=== PATIENT | female | born 1935 | race Caucasian/White ===

== ENCOUNTER 2018-03-14 13:55 | Inpatient (IN) | payer MEDICARE, BC ==
[2018-03-14] MEDS ORDERED: Sodium Chloride 0.9% 1,000 ML IV SCH ×2 (14:30)
[2018-03-14 14:47] VITALS: BMI 19.7
[2018-03-14 15:35] LABS: #Basophils 0.1 thou/uL (0.0-0.2); #Eosinphils 0.1 thou/uL (0.0-0.7); #Neutrophils 6.4 thou/uL (1.40-6.50); %Basophils 0.6 % (0.0-1.0); %Eosinophils 0.6 % (0.0-10.0); %Lymphocytes 21.5 % (21.0-51.0); %Monocytes 10.2 % (0.0-10.0); %Neutrophils 67.1 % (42.0-75.0); Hemoglobin 8.5 g/dL (12.0-16.0); Mean Corpuscular HGB CONC 34.5 g/dL (32.0-36.0); Mean Corpuscular Hemoglobin 34.3 pg (27.0-31.0); Mean Corpuscular Volume 99.3 fL (78.0-98.0); Mean Platelet Volume 7.6 fL (7.4-10.4); Platelet Count 155 thou/uL (130-400); RBC Distribution Width 10.9 % (11.5-14.5); Red Blood Cell (RBC) Count 2.49 mill/uL (4.20-5.40); White Blood Cell (WBC) Count 9.5 thou/uL (4.8-10.8)
[2018-03-14 15:56] LABS: ALT (SGPT) 11 U/L (8-55); AST (SGOT) 14 U/L (5-34); Albumin 3.8 g/dL (3.4-4.8); Alkaline Phosphatase 48 U/L (40-150); Anion Gap 12 mmol/L (10-20); BUN (Urea Nitrogen) 55 mg/dL (9.8-20.1); Bilirubin, Total 0.3 mg/dL (0.2-1.2); Calc. Creatinine Clearance 37 mL/min (70-130); Calcium 8.9 mg/dL (7.8-10.44); Carbon Dioxide 23 mmol/L (23-31); Chloride 105 mmol/L (98-107); Estimated GFR-MDRD 62; Globulin 2.2 g/dL (2.4-3.5); Glucose 102 mg/dL (83-110); Potassium 4.6 mmol/L (3.5-5.1); Sodium 135 mmol/L (136-145)
[2018-03-14] MEDS ORDERED: Ondansetron HCl/PF 4 MG/2 ML Vial IVP PRN (16:28)
[2018-03-14] MEDS ORDERED: Acetaminophen 325 MG TAB PO PRN (16:28)
[2018-03-14 17:18] LABS: Hemoglobin 7.9 g/dL (12.0-16.0)
[2018-03-14 18:13] LABS: Folate (Folic Acid) 11.4 ng/mL (7.0-31.4)
[2018-03-14] MEDS: Sodium Chloride 0.9% 1,000 ML IV SCH (22:26)
[2018-03-14] MEDS: Amlodipine 5 MG TAB PO SCH ×2 (22:26→22:28)
[2018-03-14] MEDS: Simvastatin 20 MG TAB PO SCH (22:26)
[2018-03-14] MEDS: Acetaminophen 500 MG TAB PO SCH (22:26)
[2018-03-14] MEDS: Pantoprazole 40 MG VIAL IVP SCH (22:27)
--- NOTE | 2018-03-14 22:30 | HP ---
REASON FOR ADMISSION: Likely post-polypectomy bleeding. HISTORY OF PRESENT ILLNESS: The patient gives history of having had colonoscopy with biopsies done o saturday. She also had upper endoscopy with biopsies as well during the same setting. On , patient had one episode of black tarry stool in the morning. She called the [facility] and was asked to take Imodium and to call back if she had any further bleeding. She had a second episode yesterday night. She took her second dose of Imodium and did not feel good aft er that. This morning, she felt dizzy and very lethargic. She called the clinic again this morning and was asked to come to the hospital. She has not had any further bleeding after the second episode yesterday evening. She has no complaints of chest pain, shortness of breath or palpitation. No com plaints of abdominal pain. She has been passing flatus from morning. PAST MEDICAL/SURGICAL HISTORY: History of hypertension, osteoarthritis. Has had 4 surgeries for bow el obstruction. The last one was more than 8 years back, tonsillectomy. Surgery for suspected tubal , which was negative. Last stress test was 8 years back. She moved to [facility] in the last 5 years or so. CURRENT MEDICATIONS: The patient is on Zocor 20 mg daily, lisinopril 40 mg daily, Norvasc 5 mg daily , Extra Strength Tylenol 2 capsules once daily, Super B complex 1 capsule daily, fish oil 1200 mg p.o . daily, calcium with vitamin D3 daily, magnesium oxide 500 mg daily, and has been off aspirin 81 mg for a week now. Biotin 5000 mg once daily. ALLERGIES: PENICILLIN. PERSONAL HISTORY: Does not abuse alcohol or drugs. No history of smoking. FAMILY HISTORY: Mother at the age of 89 years. She has had coronary artery disease and osteoar thritis. Father at the age of 90 years. He has had coronary artery disease as well. CODE STATUS: FULL. Power of air transport professionals, Ms. Gallego her daughter. She lives in [place], [place]. The n umber to reach her is [phone]. REVIEW OF SYSTEMS: The following complete review of systems was negative, unless otherwise mentioned in the HPI or below: Constitutional: Weight loss or gain, ability to conduct usual activities. Skin: Rash, itching. Eyes: Double vision, pain. ENT/Mouth: Nose bleeding, neck stiffness, pain, tenderness. Cardiovascular: Palpitations, dyspnea on exertion, orthopnea. Respiratory: Shortness of breath, wheezing, cough, hemoptysis, fever or night sweats. Gastrointestinal: Poor appetite, abdominal pain, heartburn, nausea, vomiting, constipation, or diarr hea. Genitourinary: Urgency, frequency, dysuria, nocturia. Musculoskeletal: Pain, swelling. Neurologic/Psychiatric: Anxiety, depression. Allergy/Immunologic: Skin rash, bleeding tendency. PHYSICAL EXAMINATION: GENERAL: The patient is an 82-year-old female, who is currently not in any acute distress. VITAL SIGNS: Blood pressure 122/58, pulse 80 per minute, respiratory rate 18 per minute, temperature 97.4 degrees Fahrenheit, saturating 98% on room air. NECK: Supple, no elevated JVD. HEENT: Extraocular muscles intact. Pupils reacting to light. Oral cavity mucous membranes are dry. No exudates or congestion. CARDIOVASCULAR: S1 and S2 heard. Regular rhythm. RESPIRATORY: Air entry 1+ bilaterally. No rales or rhonchi. ABDOMEN: Soft, bowel sounds heard. No tenderness, rigidity, or guarding. EXTREMITIES: No peripheral edema or calf tenderness. VASCULAR SYSTEM: Peripheral pulses 1+ bilateral, no ischemic ulcerations or gangrene. CENTRAL NERVOUS SYSTEM: No gross focal deficits noted. Patient is alert, awake, oriented well. PSYCHIATRIC: The patient's mood is euthymic. No hallucinations or delusions. LABORATORY AND X-RAY FINDINGS: White count of 9.5, H&H 8.5 and 24, platelet count 155, MCV is 99 wit h 67% neutrophils. Sodium 135, serum bicarbonate 23, BUN 55, creatinine 0.8, glucose 102. Liver enz ymes are within normal limits. Albumin is 3.8. Histopathology of colonoscopy and EGD done on 2017 showed focal active duodenitis, reactive gastropathy. No H. pylori and collagenous colitis. CLINICAL IMPRESSION AND PLAN: The patient will be under observation on medical floor for likely post -polypectomy bleeding. We will obtain H&H q.8 hourly x3. Her current hemoglobin is 8.5 grams, and I am not aware of her baseline. If her hemoglobin drops less than 7 grams, she will be transfused. S he is currently receiving a bolus of normal saline. Dr. London as ordered on normal saline at 125 mL per hour thereafter. We will continue her Norvasc and Zocor. The patient will be on Protonix 40 mg IV q.12 hours. All other home medications will be held for now. We will consult Dr. Edison London, her core cutter while she is here. Patient has a slightly higher MCV and we will obtain a B12 and folic acid levels as well. A baseline EKG in view of her dizziness this morning will be obtaine d as well. The patient normally ambulates by herself without any assistive devices at home. She say s she is very active at home.
--- NOTE | 2018-03-15 03:05 | CON ---
DATE OF CONSULTATION: 03/14/2018 HISTORY OF PRESENT ILLNESS: Ms. Berman is a pleasant 82-year-old female who came in admission from our office where she had presented with melena. She had had a colonoscopy and EGD with biopsies on , these were done secondary to some chronic diarrhea. The patient reports that she did well, but then yesterday she had a big black tarry stool and then again last night she had one and she fel t weak today and so she came to the office. At the office, she was examined by that works with myself and Dr. London and was found to have melenic stools. She was mildly hypotensive, decision was made to admit her to the hospital. Here, she states she has felt better since she got some IV fluid s. She denies abdominal pain. She has had no bowel movements since about 9:00 last night. Her hemo globin was 8.5 on arrival, MCV 99, white count 9.5, platelet count 155. After a liter of fluid and n ormal saline at 125 an hour since about noon at 1657, her hemoglobin was 7.9. She feels well. She i s not nauseated. She is hungry and started a liquid diet. PAST MEDICAL HISTORY: Notable for multiple abdominal surgeries for bowel obstruction. She also has history of hypertension, hyperlipidemia. HOME MEDICATIONS: Include vitamin B, vitamin A, C, E, zinc and copper, simvastatin, mag oxide, lisin opril, fish oil, calcium, biotin, aspirin, amlodipine, and acetaminophen. PRESENT MEDICATIONS: Tylenol, acetaminophen, Norvasc, Zofran, Protonix 40 mg IV q.12, Zocor, and nor mal saline at 125 an hour. PHYSICAL EXAMINATION: GENERAL: She is resting comfortably in bed. She is in no distress. VITAL SIGNS: Temperature is 98.5, pulse 77, blood pressure 113/56. ABDOMEN: Soft, nontender. There is no rebound. There is no guarding. Bowel sounds are quiescent. EXTREMITIES: No clubbing, cyanosis, or edema. ASSESSMENT: Gastrointestinal bleed with melena. This is seemingly related to biopsies taken from th e upper and lower GI tract for chronic diarrhea. Reviewing those biopsies, there was a diagnosis of collagenous colitis colon biopsies. The small bowel biopsies and stomach biopsies were normal. This is atypical complication of GI biopsies, which she do not believe, but I suspect it is definit solo the source. It is unclear if it is upper or lower with the melena, it is most likely upper, rivera juilo c, in the elevated BUN of 55 and go along with that; however, a right-sided colonic leak can look l uriel melena as well. At this time, she has not had passed any blood almost 24 hours. RECOMMENDATIONS: Continue IV Protonix overnight, we will decrease her IV fluids to about 80 mL an ho ur now. Her blood pressure is up, heart rate is down, and watch her closely. She shows overt signs of bleeding then I think, she will need upper endoscopy, as she does not. We will watch her hemoglob in if she goes below 7, she will need a unit of blood. She states she has some anemia, but she is un clear what her baseline is not to review the records from our office to see if we have any records of her old hemoglobins that was made at this hospital. We will follow along with you. I have talked w ith the nurse staff to call me if she has any melenic stools becomes tachycardic or hypotensive.
[2018-03-15] MEDS: Sodium Chloride 0.9% 1,000 ML IV SCH (03:54)
[2018-03-15 05:22] LABS: ALT (SGPT) 7 U/L (8-55); AST (SGOT) 12 U/L (5-34); Alkaline Phosphatase 33 U/L (40-150); Anion Gap 7 mmol/L (10-20); BUN (Urea Nitrogen) 33 mg/dL (9.8-20.1); Bilirubin, Total 0.4 mg/dL (0.2-1.2); Calc. Creatinine Clearance 45 mL/min (70-130); Carbon Dioxide 22 mmol/L (23-31); Chloride 113 mmol/L (98-107); Estimated GFR-MDRD 78; Globulin 1.7 g/dL (2.4-3.5); Glucose 86 mg/dL (83-110); Potassium 3.8 mmol/L (3.5-5.1); Protein, Total 4.7 g/dL (6.0-8.3); Sodium 138 mmol/L (136-145)
[2018-03-15 08:04] LABS: #Eosinphils 0.2 thou/uL (0.0-0.7); #Lymphocytes 2.2 thou/uL (1.20-3.40); #Monocytes 0.6 thou/uL (0.11-0.59); %Basophils 0.3 % (0.0-1.0); %Eosinophils 3.2 % (0.0-10.0); %Lymphocytes 36.6 % (21.0-51.0); %Monocytes 10.4 % (0.0-10.0); %Neutrophils 49.6 % (42.0-75.0); Hemoglobin 7.1 g/dL (12.0-16.0); Mean Corpuscular Hemoglobin 33.9 pg (27.0-31.0); Mean Corpuscular Volume 99.5 fL (78.0-98.0); Mean Platelet Volume 7.7 fL (7.4-10.4); Platelet Count 137 thou/uL (130-400); White Blood Cell (WBC) Count 6.1 thou/uL (4.8-10.8)
[2018-03-15] MEDS: Pantoprazole 40 MG VIAL IVP SCH ×2 (08:07→20:09)
--- NOTE | 2018-03-15 12:14 | PDOC.PN ---
- Subjective Encounter Start Date: 03/15/18 Encounter Start Time: 09:15 Subjective: had one more episode of melena last night, none this am -: no nausea or vomiting - Objective Resuscitation Status: Resuscitation Status FULL:Full Resuscitation MAR Reviewed: Yes Vital Signs & Weight: Vital Signs (12 hours) Temp Pulse Resp BP BP Pulse Ox 03/15/18 08:00 98.2 F 74 16 03/15/18 07:50 98.2 F 74 16 110/57 L 96 03/15/18 03:56 98.5 F 89 18 117/58 L 97 Weight Weight 104 lb 8 oz I&O: 03/14/18 03/15/18 03/16/18 06:59 06:59 06:59 Intake Total 2643 0 Output Total 1300 Balance 1343 0 Result Diagrams: 03/15/18 07:46 03/15/18 04:36 Phys Exam - Physical Examination HEENT: PERRLA, moist MMs Neck: no JVD, supple Respiratory: no wheezing, no rales Cardiovascular: RRR, no significant murmur Gastrointestinal: soft, no distention, positive bowel sounds Musculoskeletal: no edema, pulses present Neurological: non-focal, moves all 4 limbs Psychiatric: normal affect, A&O x 3 Dx/Plan (1) GI bleed Code(s): K92.2 - GASTROINTESTINAL HEMORRHAGE, UNSPECIFIED Status: Acute Qualifiers: GI bleed type/associated pathology: unspecified gastrointestinal hemorrhage type Qualified Code(s): K92.2 - Gastrointestinal hemorrhage, unspecified Comment: likely post polypectomy bleed which is stabilizing (2) Acute blood loss anemia Code(s): D62 - ACUTE POSTHEMORRHAGIC ANEMIA Status: Acute (3) HTN (hypertension) Code(s): I10 - ESSENTIAL (PRIMARY) HYPERTENSION Status: Chronic Qualifiers: Hypertension type: essential hypertension Qualified Code(s): I10 - Essential (primary) hypertension (4) Osteoarthritis Code(s): M19.90 - UNSPECIFIED OSTEOARTHRITIS, UNSPECIFIED SITE Status: Chronic Qualifiers: Osteoarthritis location: multiple joints Osteoarthritis type: unspecified Qualified Code(s): M15.9 - Polyosteoarthritis, unspecified - Plan will recieve 1 u prbc today -: switch to inpatient status -: cbc in am, if stable will dc home -: may start clear liq diet if ok with * . Review of Systems - Medications/Allergies Allergies/Adverse Reactions: Allergies Allergy/AdvReac Type Severity Reaction Status Date / Time Penicillins Allergy Verified 03/14/18 14:30 Medications: Current Medications Acetaminophen (Tylenol) 650 mg PO Q4H PRN PRN Reason: Headache/Fever or Pain Acetaminophen (Tylenol) 1,000 mg PO [facility] Last Admin: 03/14/18 22:26 Dose: 1,000 mg Amlodipine Besylate (Norvasc) 5 mg PO [facility] Last Admin: 03/14/18 22:28 Dose: Not Given Ondansetron HCl (Zofran) 4 mg IVP Q6H PRN PRN Reason: Nausea/Vomiting Pantoprazole Sodium (Protonix) 40 mg IVP Q12HR [facility] Last Admin: 03/15/18 08:07 Dose: 40 mg Simvastatin (Zocor) 20 mg PO [facility] Last Admin: 03/14/18 22:26 Dose: 20 mg Sodium Chloride (Flush - Normal Saline) 10 ml IVF Q12HR [facility] Last Admin: 03/15/18 08:08 Dose: 10 ml Sodium Chloride (Flush - Normal Saline) 10 ml IVF PRN PRN PRN Reason: Saline Flush Sodium Chloride (Flush - Normal Saline) 10 ml IVF PRN PRN PRN Reason: Saline Flush
--- NOTE | 2018-03-15 14:21 | PRG ---
DATE OF SERVICE: 03/15/2018 SUBJECTIVE: The patient notes she had two formed small stools today, they were dark, but they were n ot tarry. She is receiving a blood transfusion. She is tolerating liquids, is not real hungry. She has no abdominal pain. PHYSICAL EXAMINATION: VITAL SIGNS: Temperature is 98.2, pulse 74, blood pressure 110/57. ABDOMEN: Soft and nontender. SKIN: She is pale. LABORATORY STUDIES: Hemoglobin was 8.5 on admission, 7.9, then 7 and this morning 7.1. White count 6.1, platelet count 137,000. BUN has come down from 55 to 33, creatinine is 0.72. ASSESSMENT: 1. Gastrointestinal bleed after biopsies of this upper and lower gastrointestinal tract for chronic diarrhea. This seems to have resolved. 2. Anemia secondary to acute gastrointestinal blood loss. The patient is receiving a unit of blood, which seems reasonable. 3. She was weak and dizzy and orthostatic when she came in. 4. Collagenous colitis was discovered on the biopsies of her colon. RECOMMENDATIONS: 1. Advance diet. 2. Observe overnight. If no signs of further bleeding and stable hemoglobin, she can go home tomorr ow. 3. Continue PPIs. 4. We will treat with budesonide for collagenous colitis on discharge.
[2018-03-15] MEDS: Acetaminophen 500 MG TAB PO SCH (20:09)
[2018-03-15] MEDS: Simvastatin 20 MG TAB PO SCH (20:09)
[2018-03-15] MEDS: Amlodipine 5 MG TAB PO SCH (20:13)
[2018-03-16 04:28] LABS: #Eosinphils 0.2 thou/uL (0.0-0.7); #Lymphocytes 2.1 thou/uL (1.20-3.40); #Monocytes 0.6 thou/uL (0.11-0.59); #Neutrophils 2.6 thou/uL (1.40-6.50); %Basophils 0.6 % (0.0-1.0); %Eosinophils 3.8 % (0.0-10.0); %Lymphocytes 37.9 % (21.0-51.0); %Monocytes 10.4 % (0.0-10.0); %Neutrophils 47.3 % (42.0-75.0); Hemoglobin 8.8 g/dL (12.0-16.0); Mean Corpuscular HGB CONC 34.2 g/dL (32.0-36.0); Mean Corpuscular Hemoglobin 32.9 pg (27.0-31.0); Mean Corpuscular Volume 96.1 fL (78.0-98.0); Platelet Count 150 thou/uL (130-400); Red Blood Cell (RBC) Count 2.67 mill/uL (4.20-5.40); White Blood Cell (WBC) Count 5.5 thou/uL (4.8-10.8)
[2018-03-16] MEDS: Pantoprazole 40 MG VIAL IVP SCH (08:22)
[2018-03-16 13:27] LABS: Hemoglobin 8.8 g/dL (12.0-16.0)
--- NOTE | 2018-03-16 14:53 | PDOC.PN ---
- Subjective Encounter Start Date: 03/16/18 Encounter Start Time: 08:10 Subjective: feels better, had bm last evening which was a bit pasty and dark -: no elvia blood in stool -: is tolerating oral solid diet and amb in hallway - Objective Resuscitation Status: Resuscitation Status FULL:Full Resuscitation MAR Reviewed: Yes Vital Signs & Weight: Vital Signs (12 hours) Temp Pulse Resp BP Pulse Ox 03/16/18 08:20 98.1 F 68 16 98 03/16/18 07:09 98.1 F 68 16 130/70 98 03/16/18 03:20 97.7 F 70 16 128/67 98 Weight Weight 104 lb 8 oz I&O: 03/15/18 03/16/18 03/17/18 06:59 06:59 06:59 Intake Total 2643 780 Output Total 1300 Balance 1343 780 Result Diagrams: 03/16/18 13:02 03/15/18 04:36 Phys Exam - Physical Examination HEENT: PERRLA, moist MMs Neck: no JVD, supple Respiratory: no wheezing, no rales Cardiovascular: RRR, no significant murmur Gastrointestinal: soft, non-tender, no distention, positive bowel sounds Musculoskeletal: no edema, pulses present Neurological: non-focal, moves all 4 limbs Psychiatric: normal affect, A&O x 3 Dx/Plan (1) GI bleed Code(s): K92.2 - GASTROINTESTINAL HEMORRHAGE, UNSPECIFIED Status: Acute Qualifiers: GI bleed type/associated pathology: unspecified gastrointestinal hemorrhage type Qualified Code(s): K92.2 - Gastrointestinal hemorrhage, unspecified Comment: likely post polypectomy bleed which is stabilizing (2) Acute blood loss anemia Code(s): D62 - ACUTE POSTHEMORRHAGIC ANEMIA Status: Acute (3) HTN (hypertension) Code(s): I10 - ESSENTIAL (PRIMARY) HYPERTENSION Status: Chronic Qualifiers: Hypertension type: essential hypertension Qualified Code(s): I10 - Essential (primary) hypertension (4) Osteoarthritis Code(s): M19.90 - UNSPECIFIED OSTEOARTHRITIS, UNSPECIFIED SITE Status: Chronic Qualifiers: Osteoarthritis location: multiple joints Osteoarthritis type: unspecified Qualified Code(s): M15.9 - Polyosteoarthritis, unspecified - Plan h/h is stable after a unit of prbc -: has been cleared for dc by -: to f/u with PCP in 1 week. -: oral iron, hold asp for 1 week * . Review of Systems - Medications/Allergies Allergies/Adverse Reactions: Allergies Allergy/AdvReac Type Severity Reaction Status Date / Time Penicillins Allergy Verified 03/14/18 14:30 Medications: Current Medications Acetaminophen (Tylenol) 650 mg PO Q4H PRN PRN Reason: Headache/Fever or Pain Acetaminophen (Tylenol) 1,000 mg PO [facility] Last Admin: 03/15/18 20:09 Dose: 1,000 mg Amlodipine Besylate (Norvasc) 5 mg PO [facility] Last Admin: 03/15/18 20:13 Dose: Not Given Ondansetron HCl (Zofran) 4 mg IVP Q6H PRN PRN Reason: Nausea/Vomiting Pantoprazole Sodium (Protonix) 40 mg IVP Q12HR [facility] Last Admin: 03/16/18 08:22 Dose: 40 mg Simvastatin (Zocor) 20 mg PO [facility] Last Admin: 03/15/18 20:09 Dose: 20 mg Sodium Chloride (Flush - Normal Saline) 10 ml IVF Q12HR [facility] Last Admin: 03/16/18 08:26 Dose: 10 ml Sodium Chloride (Flush - Normal Saline) 10 ml IVF PRN PRN PRN Reason: Saline Flush Sodium Chloride (Flush - Normal Saline) 10 ml IVF PRN PRN PRN Reason: Saline Flush
[2018-03-16 15:19] VITALS: BP 111/71; TEMP 97.8
--- NOTE | 2018-03-16 21:33 | DIS ---
DATE OF ADMISSION: 03/14/2018 DATE OF DISCHARGE: 03/16/2018 DISCHARGE DISPOSITION: To home. PRIMARY DISCHARGE DIAGNOSES: Post-polypectomy bleeding with acute blood loss anemia, resolved. SECONDARY DISCHARGE DIAGNOSES: Hypertension, history of osteoarthritis. PROCEDURES DONE DURING HOSPITALIZATION: The patient received 1 unit of packed cell, H&H had dropped down to 7 and 20. Discharge H&H is 8.8 and 25, MCV is 96. Vitamin B12 of 1096, folic acid 11.4. Di scharge BUN and creatinine 33 and 0.7. Initial BUN was 55 with creatinine of 0.8. INPATIENT CONSULT: Dr. Welch for Gastroenterology. DISCHARGE MEDICATIONS: Ferrous sulfate 325 mg p.o. twice daily, Zocor 20 mg p.o. at bedtime, omepraz ole 20 mg daily, lisinopril 40 mg p.o. at bedtime, budesonide 3 mg p.o. daily, Biotin 5000 mcg p.o. d aily, Norvasc 5 mg p.o. at bedtime. Please note patient needs to restart aspirin after 7 days. ALLERGIES: PENICILLIN. BRIEF COURSE DURING HOSPITALIZATION: Patient initially got admitted on the with complaints of b lack tarry stools and dizziness. She has had a colonoscopy with upper endoscopy and biopsies done pr ior to arrival at [facility]. Patient was initially admitted to telemetry and later downgraded to medical floor. She has had serial trending of H&H done. Her hemoglobin ana m pped down to 7 grams and was given a unit of blood and since then has remained stable. Her black tar ry stool is slowly resolving. Her biopsies revealed collagenous colitis and has been placed on budes onide for the same. She has been cleared by Dr. Welch for Gastroenterology to go home today. Judy arshad has been advised to hold the aspirin for a week and to restart later. She also needs to come to t he nearest emergency room or call 911 if she were to develop dizziness, abdominal pain or elvia bleed ing per rectum. Currently, she is ambulating and tolerating oral solid diet prior to discharge. Please see a [id number] documentation on [facility] for the day of discharge.
--- NOTE | 2018-03-17 08:26 | PRG ---
DATE OF SERVICE: 03/16/2018 SUBJECTIVE: Ms. Berman had one bowel movement yesterday and 1 today. They are not quite as tarry b ut they are remaining black. She feels much better, eating solid food. She has been up walking. OBJECTIVE: VITAL SIGNS: Temperature is 98, pulse 68, blood pressure 130/70. ABDOMEN: Soft, nontender. HEART: Regular rate and rhythm. LABORATORY STUDIES: Hemoglobin is 8.8 after 1 unit of blood. Her baseline hemoglobin is around 11 i n the outpatient setting a few months ago. ASSESSMENT: 1. Gastrointestinal bleed, likely post-biopsies. This seemed to have been upper, this seems to have stopped. 2. Anemia, symptomatic yesterday, transfused 1 unit of blood, hemoglobin 8.8 today. 3. Microscopic colitis, specifically collagenous colitis found on biopsies that were done for her ch ronic diarrhea. RECOMMENDATIONS: I will check H&H today. If it is stable, she can go home. We will place her on om eprazole for [address] her on budesonide 3 mg 3 p.o. q.a.m. for collagenous colitis. W e will follow up in the office in a couple of weeks and then we maybe going to start iron at that nahum e. We would not start iron on discharge, this going to make her stools black and confused her whethe r or not she is bleeding more.
== END 2018-03-16 15:41 | disposition home or self-care (01) | DRG 920 ==
LOC: 2SW 13:56 → OBSVTOIN 03-15 07:26 → T4-A 03-15 12:47
PROVIDERS: ADMIT Internal Medicine; ATTEND Internal Medicine
PROC: 30233N1 Transfusion of Nonautologous Red Blood Cells into Peripheral Vein, Percutaneous Approach (ICD-10-PCS; principal; 2018-03-15)
DX: K91.840 Postprocedural hemorrhage of a digestive system organ or structure following a digestive system procedure (principal); D62 Acute posthemorrhagic anemia; Y83.8 Other surgical procedures as the cause of abnormal reaction of the patient, or of later complication, without mention of misadventure at the time of the procedure; Y73.8 Miscellaneous gastroenterology and urology devices associated with adverse incidents, not elsewhere classified; Y92.9 Unspecified place or not applicable; I10 Essential (primary) hypertension; M19.90 Unspecified osteoarthritis, unspecified site; Z88.0 Allergy status to penicillin; K52.839 Microscopic colitis, unspecified
CPT/HCPCS: 36415; 36430; 80053; 82607; 82746; 85014; 85018; 85025; 86850; 86900; 86901; 93005; 93010; A4216; C9113; P9016